=== PATIENT | male | born 1995 | race African-American/Black ===

== ENCOUNTER 2020-10-28 18:24 | Emergency (ER) | payer OTHER ==
[~2020-10-28] VITALS: Ht 182.9 cm; Wt 90.9 kg
[2020-10-28 18:38] VITALS: TEMP 98
[2020-10-28 20:38] VITALS: BP 132/70; PULSE 66
== END 2020-10-28 20:38 | disposition home or self-care (01) ==
LOC: COL.ER 18:24
DX: M65.841 Other synovitis and tenosynovitis, right hand (principal)